=== PATIENT | male | born 1950 | race African-American/Black ===

== ENCOUNTER 2017-11-29 07:23 | Inpatient (IN) | payer OTHER ==
[~2017-11-29] VITALS: Ht 167.6 cm; Wt 63.5 kg
[~2017-11-29 07:23] MED LIST: B1/B1TAB5 MT; DONE10TA11 PO; FOLI-43 PO; FOLI-68 PO; KEPP500 PO; METH2.5T PO; METO25TA6 PO; OCD MT; THIA100T72 PO
[2017-11-29] MEDS ORDERED: LORAZEPAM 2MG/ML CPJ IV ONE (07:30)
[2017-11-29] MEDS ORDERED: LEVETIRACETAM 1000MG/100ML 100 ML IV ONE (07:30)
[2017-11-29] MEDS: LEVETIRACETAM 1000MG/100ML 100 ML IV NR ×3 (08:23→09:25)
[2017-11-29 09:08] LABS: BASOPHILS % 0.6 % (0.0-2.0); EOSINOPHILS % 1.2 % (0.0-5.0); HEMATOCRIT. 40.5 % (42.0-52.0); HEMOGLOBIN. 13.6 g/dL (14.0-18.0); MEAN CORPUSCULAR HEMOGLOBIN 28.9 pg (28.0-32.0); MEAN CORPUSCULAR VOLUME 86.2 fL (80.0-94.0); MEAN PLATELET VOLUME 7.7 fl (7.4-10.4); MONOCYTES % 4.7 % (2.0-8.0); NEUTROPHILS % 81.5 % (40.0-76.0); PLATELET 209 x1000/uL (130-400); RED CELL DISTRIBUTION WIDTH 15.5 % (11.6-14.6)
[2017-11-29 09:17] LABS: CHLORIDE 107 mEq/L (98-107)
[2017-11-29 09:23] LABS: ETHANOL BLOOD < 10 mg/dL
[2017-11-29 09:29] LABS: PHENOBARBITAL < 2.1 ug/mL (15.0-40.0); VALPROIC ACID < 3.0 ug/mL (50-100)
[2017-11-29 09:48] LABS: CARBAMAZEPINE < 0.5 ug/mL (4-12)
[2017-11-29] MEDS ORDERED: OLANZAPINE 10 MG/VIAL IM ONE (10:45)
[2017-11-29 12:00] VITALS: BP 110/65
[2017-11-29] MEDS ORDERED: DEXT 5%/0.45% NACL 1000ML 1,000 ML IV SCH (12:51)
[2017-11-29] MEDS ORDERED: DOCUSATE SODIUM 100MG CAPSULE PO PRN (13:00)
[2017-11-29] MEDS ORDERED: ONDANSETRON HCL 4MG/2ML INJ IV PRN (13:00)
[2017-11-29] MEDS ORDERED: HYDROCODONE/ACETAMINOPHEN 5/325MG TABLET PO PRN (13:00)
[2017-11-29] MEDS ORDERED: ONDANSETRON 4MG ODT PO PRN (13:15)
[2017-11-29 13:49] VITALS: BP 110/65
[2017-11-29] MEDS: DEXT 5%/0.45% NACL 1000ML 1,000 ML IV SCH (14:40)
[2017-11-29 15:57] VITALS: BP 143/79
[2017-11-29 17:56] LABS: CLARITY URINE CLEAR (CLEAR); COLOR URINE YELLOW (YELLOW); KETONES URINE TRACE (NEGATIVE); LEUKOCYTE ESTERASE URINE NEGATIVE (NEGATIVE); NITRITE URINE NEGATIVE (NEGATIVE); OCCULT BLOOD URINE NEGATIVE (NEGATIVE); PROTEIN URINE NEGATIVE (NEGATIVE); SPECIFIC GRAVITY URINE 1.012 (1.005-1.030)
[2017-11-29 18:05] LABS: *AMPHETAMINES SCREEN URINE NEGATIVE (NEGATIVE); *BARBITURATES SCREEN URINE NEGATIVE (NEGATIVE); *BENZODIAZEPINES SCREEN URINE PRESUMTIVE POSITIVE (NEGATIVE)
[2017-11-29 18:06] LABS: *COCAINE SCREEN URINE NEGATIVE (NEGATIVE); CANNABINOID URINE SCREEN NEGATIVE (NEGATIVE); METHADONE URINE SCREEN NEGATIVE (NEGATIVE); OPIATES URINE SCREEN NEGATIVE (NEGATIVE); PHENCYCLIDINE URINE SCREEN NEGATIVE (NEGATIVE)
[2017-11-29 20:00] VITALS: BP 129/87
[2017-11-29] MEDS: LEVETIRACETAM 500MG TABLET PO SCH (21:46)
[2017-11-29] MEDS: LORAZEPAM 2MG/ML CPJ IV PRN (21:47)
[2017-11-30] VITALS: BP 115/61
[2017-11-30 04:00] VITALS: BP 98/53
[2017-11-30] MEDS: LORAZEPAM 2MG/ML CPJ IV PRN ×4 (04:44→21:12)
[2017-11-30] MEDS: DEXT 5%/0.45% NACL 1000ML 1,000 ML IV SCH ×2 (06:23→16:04)
[2017-11-30 08:00] VITALS: BP 105/67
[2017-11-30 08:04] LABS: BASOPHILS % 0.3 % (0.0-2.0); EOSINOPHILS % 4.8 % (0.0-5.0); HEMATOCRIT. 40.8 % (42.0-52.0); HEMOGLOBIN. 13.8 g/dL (14.0-18.0); LYMPHOCYTES % 22.4 % (20.0-50.0); MEAN CORPUSCULAR VOLUME 85.8 fL (80.0-94.0); MEAN PLATELET VOLUME 7.7 fl (7.4-10.4); NEUTROPHILS % 62.5 % (40.0-76.0); PLATELET 207 x1000/uL (130-400); RED BLOOD CELL COUNT 4.76 mill/uL (4.7-6.1); RED CELL DISTRIBUTION WIDTH 15.8 % (11.6-14.6)
[2017-11-30] MEDS: FOLIC ACID 1MG TABLET PO SCH ×2 (09:00→10:09)
[2017-11-30] MEDS: LEVETIRACETAM 500MG TABLET PO SCH ×3 (09:00→21:11)
[2017-11-30 09:09] LABS: CHLORIDE 106 mEq/L (98-107)
[2017-11-30 12:00] VITALS: BP 124/84
[2017-11-30 20:00] VITALS: BP 123/78
[2017-12-01] VITALS: BP 137/84
[2017-12-01] MEDS: LORAZEPAM 2MG/ML CPJ IV PRN ×2 (02:01→13:22)
[2017-12-01 04:00] VITALS: BP 121/73
[2017-12-01] MEDS: DEXT 5%/0.45% NACL 1000ML 1,000 ML IV SCH ×2 (05:27→19:54)
[2017-12-01 08:00] VITALS: BP 109/69
[2017-12-01] MEDS: LEVETIRACETAM 500MG TABLET PO SCH ×2 (11:28→21:37)
[2017-12-01] MEDS: FOLIC ACID 1MG TABLET PO SCH (11:28)
[2017-12-01 12:00] VITALS: BP 130/81
[2017-12-01 16:00] VITALS: BP 125/76
[2017-12-01] MEDS: HALOPERIDOL LACTATE 5MG/ML VIAL IM PRN (16:48)
[2017-12-01 20:00] VITALS: BP 158/93
[2017-12-02] VITALS: BP 131/74
[2017-12-02 04:00] VITALS: BP 130/66
[2017-12-02 08:00] VITALS: BP 116/76
[2017-12-02] MEDS: LEVETIRACETAM 500MG TABLET PO SCH ×2 (08:54→21:20)
[2017-12-02] MEDS: DEXT 5%/0.45% NACL 1000ML 1,000 ML IV SCH ×2 (08:54→21:20)
[2017-12-02] MEDS: FOLIC ACID 1MG TABLET PO SCH (08:54)
[2017-12-02] MEDS: LORAZEPAM 2MG/ML CPJ IV PRN ×3 (08:54→18:24)
[2017-12-02 12:00] VITALS: BP 135/75
[2017-12-02 16:00] VITALS: BP 140/81
[2017-12-02 20:00] VITALS: BP 150/99
[2017-12-03] VITALS: BP 167/95
[2017-12-03] MEDS: LORAZEPAM 2MG/ML CPJ IV PRN ×2 (00:45→22:21)
[2017-12-03] MEDS: CLONIDINE 0.1MG TABLET PO PRN (01:13)
[2017-12-03 04:00] VITALS: BP 151/76
[2017-12-03 08:00] VITALS: BP 115/72
[2017-12-03] MEDS: FOLIC ACID 1MG TABLET PO SCH (11:31)
[2017-12-03] MEDS: LEVETIRACETAM 500MG TABLET PO SCH ×2 (11:31→21:54)
[2017-12-03] MEDS: DEXT 5%/0.45% NACL 1000ML 1,000 ML IV SCH (11:32)
[2017-12-03 12:00] VITALS: BP 98/59
[2017-12-03 16:00] VITALS: BP 118/70
[2017-12-03 20:00] VITALS: BP 108/72
[2017-12-04] VITALS: BP 145/87
[2017-12-04] MEDS: DEXT 5%/0.45% NACL 1000ML 1,000 ML IV SCH ×2 (02:21→19:36)
[2017-12-04] MEDS: HALOPERIDOL LACTATE 5MG/ML VIAL IM PRN ×2 (03:35→19:36)
[2017-12-04 04:00] VITALS: BP 143/89
[2017-12-04 08:32] VITALS: BP 140/79
[2017-12-04] MEDS: FOLIC ACID 1MG TABLET PO SCH (09:21)
[2017-12-04] MEDS: LEVETIRACETAM 500MG TABLET PO SCH ×2 (09:21→21:33)
[2017-12-04 11:58] VITALS: BP 143/88
[2017-12-04 16:00] VITALS: BP 107/72
[2017-12-04 20:00] VITALS: BP 104/69
[2017-12-05] VITALS: BP 116/73
[2017-12-05 04:00] VITALS: BP 99/54
[2017-12-05] MEDS: DEXT 5%/0.45% NACL 1000ML 1,000 ML IV SCH ×2 (05:32→20:07)
[2017-12-05 08:00] VITALS: BP 125/69
[2017-12-05] MEDS: LEVETIRACETAM 500MG TABLET PO SCH ×2 (08:45→20:07)
[2017-12-05] MEDS: FOLIC ACID 1MG TABLET PO SCH (08:45)
[2017-12-05] MEDS: HALOPERIDOL LACTATE 5MG/ML VIAL IM PRN ×2 (09:22→20:04)
[2017-12-05 12:00] VITALS: BP 110/71
[2017-12-05] MEDS: LORAZEPAM 2MG/ML CPJ IV PRN (13:43)
[2017-12-05 16:00] VITALS: BP 120/90
[2017-12-05 20:00] VITALS: BP 125/75
[2017-12-06] VITALS: BP 122/78
[2017-12-06 04:00] VITALS: BP 116/76
[2017-12-06] MEDS: HALOPERIDOL LACTATE 5MG/ML VIAL IM PRN (04:35)
[2017-12-06] MEDS: DEXT 5%/0.45% NACL 1000ML 1,000 ML IV SCH ×2 (05:59→19:37)
[2017-12-06 08:00] VITALS: BP 117/72
[2017-12-06] MEDS: FOLIC ACID 1MG TABLET PO SCH (08:40)
[2017-12-06] MEDS: LEVETIRACETAM 500MG TABLET PO SCH ×2 (08:40→20:25)
[2017-12-06] MEDS: LORAZEPAM 2MG/ML CPJ IV PRN (08:44)
[2017-12-06 12:00] VITALS: BP 119/67
[2017-12-06] MEDS: LAMOTRIGINE 25MG TABLET PO SCH (14:41)
[2017-12-06 16:00] VITALS: BP 126/87
[2017-12-06 16:27] LABS: BASOPHILS % 0.3 % (0.0-2.0); EOSINOPHILS % 2.9 % (0.0-5.0); HEMATOCRIT. 41.5 % (42.0-52.0); HEMOGLOBIN. 14.1 g/dL (14.0-18.0); LYMPHOCYTES % 19.2 % (20.0-50.0); MEAN CORPUSCULAR HEMOGLOBIN 29.1 pg (28.0-32.0); MEAN CORPUSCULAR VOLUME 85.6 fL (80.0-94.0); MEAN PLATELET VOLUME 7.9 fl (7.4-10.4); MONOCYTES % 7.6 % (2.0-8.0); PLATELET 209 x1000/uL (130-400); RED BLOOD CELL COUNT 4.85 mill/uL (4.7-6.1); RED CELL DISTRIBUTION WIDTH 15.4 % (11.6-14.6)
[2017-12-06 16:49] LABS: CHLORIDE 103 mEq/L (98-107)
[2017-12-06 16:53] LABS: AMMONIA 29 uMol/L (<32)
[2017-12-06 17:21] LABS: VITAMIN B12 SERUM 1850 pg/mL (211-911)
[2017-12-06 20:00] VITALS: BP 127/79
[2017-12-06] MEDS: RISPERIDONE 0.5MG TABLET PO SCH (20:25)
[2017-12-07] VITALS: BP 162/89
[2017-12-07 04:00] VITALS: BP 118/80
[2017-12-07 08:00] VITALS: BP 146/81
[2017-12-07] MEDS: DEXT 5%/0.45% NACL 1000ML 1,000 ML IV SCH ×2 (09:52→22:53)
[2017-12-07] MEDS: LEVETIRACETAM 500MG TABLET PO SCH ×2 (09:53→21:00)
[2017-12-07] MEDS: LAMOTRIGINE 25MG TABLET PO SCH (09:53)
[2017-12-07] MEDS: RISPERIDONE 0.5MG TABLET PO SCH ×2 (09:53→21:00)
[2017-12-07] MEDS: FOLIC ACID 1MG TABLET PO SCH (09:53)
[2017-12-07 12:00] VITALS: BP 124/82
[2017-12-07 16:00] VITALS: BP 152/69
[2017-12-07 20:00] VITALS: BP 133/98
[2017-12-08] VITALS (7 sets, daily range): BP systolic 115–156; BP diastolic 47–94
[2017-12-08] MEDS: FOLIC ACID 1MG TABLET PO SCH (09:48)
[2017-12-08] MEDS: LAMOTRIGINE 25MG TABLET PO SCH (09:48)
[2017-12-08] MEDS: RISPERIDONE 0.5MG TABLET PO SCH ×2 (09:48→21:04)
[2017-12-08] MEDS: LEVETIRACETAM 500MG TABLET PO SCH ×2 (09:48→21:04)
[2017-12-08] MEDS: DEXT 5%/0.45% NACL 1000ML 1,000 ML IV SCH (12:45)
[2017-12-09] VITALS (8 sets, daily range): BP systolic 108–155; BP diastolic 61–102
[2017-12-09] MEDS: DEXT 5%/0.45% NACL 1000ML 1,000 ML IV SCH ×2 (01:25→20:53)
[2017-12-09] MEDS: CLONIDINE 0.1MG TABLET PO PRN (03:50)
[2017-12-09] MEDS: LEVETIRACETAM 500MG TABLET PO SCH ×2 (10:20→20:51)
[2017-12-09] MEDS: LAMOTRIGINE 25MG TABLET PO SCH (10:20)
[2017-12-09] MEDS: RISPERIDONE 0.5MG TABLET PO SCH ×2 (10:20→20:51)
[2017-12-09] MEDS: FOLIC ACID 1MG TABLET PO SCH (10:20)
[2017-12-10] VITALS: BP 115/86
[2017-12-10 04:00] VITALS: BP 113/75
[2017-12-10 08:00] VITALS: BP 108/64
[2017-12-10] MEDS: FOLIC ACID 1MG TABLET PO SCH (08:28)
[2017-12-10] MEDS: LEVETIRACETAM 500MG TABLET PO SCH ×2 (08:28→20:23)
[2017-12-10] MEDS: RISPERIDONE 0.5MG TABLET PO SCH ×2 (08:28→20:23)
[2017-12-10] MEDS: LAMOTRIGINE 25MG TABLET PO SCH (08:28)
[2017-12-10] MEDS: DEXT 5%/0.45% NACL 1000ML 1,000 ML IV SCH (08:28)
[2017-12-10 12:00] VITALS: BP 110/66
[2017-12-10 16:00] VITALS: BP 96/57
[2017-12-10 20:00] VITALS: BP 104/69
[2017-12-10] MEDS: ACETAMINOPHEN 325MG TABLET PO PRN (20:23)
[2017-12-11] VITALS: BP 110/65
[2017-12-11] MEDS: HALOPERIDOL LACTATE 5MG/ML VIAL IM PRN ×2 (01:31→15:02)
[2017-12-11 04:00] VITALS: BP 118/69
[2017-12-11] MEDS: DEXT 5%/0.45% NACL 1000ML 1,000 ML IV SCH ×2 (05:05→13:33)
[2017-12-11 08:00] VITALS: BP 164/88
[2017-12-11] MEDS: FOLIC ACID 1MG TABLET PO SCH (08:02)
[2017-12-11] MEDS: LAMOTRIGINE 25MG TABLET PO SCH (08:02)
[2017-12-11] MEDS: LEVETIRACETAM 500MG TABLET PO SCH ×2 (08:02→21:02)
[2017-12-11] MEDS: RISPERIDONE 0.5MG TABLET PO SCH ×2 (08:03→21:02)
[2017-12-11] MEDS: ACETAMINOPHEN 325MG TABLET PO PRN (11:12)
[2017-12-11] MEDS: METOPROLOL TARTRATE 25MG TABLET PO SCH ×2 (11:14→21:01)
[2017-12-11 12:00] VITALS: BP 152/83
[2017-12-11] MEDS: LEVOFLOXACIN 500MG PREMIX 100 ML IV SCH (15:32)
[2017-12-11 20:00] VITALS: BP 132/75
[2017-12-12] VITALS (8 sets, daily range): BP systolic 101–166; BP diastolic 66–83
[2017-12-12] MEDS: METOPROLOL TARTRATE 25MG TABLET PO SCH (09:09)
[2017-12-12] MEDS: LEVETIRACETAM 500MG TABLET PO SCH ×2 (09:10→21:31)
[2017-12-12] MEDS: LAMOTRIGINE 25MG TABLET PO SCH (09:10)
[2017-12-12] MEDS: RISPERIDONE 0.5MG TABLET PO SCH ×2 (09:10→21:31)
[2017-12-12] MEDS: FOLIC ACID 1MG TABLET PO SCH (09:10)
[2017-12-12] MEDS: DEXT 5%/0.45% NACL 1000ML 1,000 ML IV SCH (11:44)
[2017-12-12] MEDS: LEVOFLOXACIN 500MG PREMIX 100 ML IV SCH (15:31)
== END 2017-12-12 21:38 | DRG 100 ==
LOC: ER 07:43 → 5WST 09:51 → ENRESERV 09:54 → EDBEDREQ 09:55 → EDBEDREQTM 09:55 → 5WST 12-11 10:00
PROVIDERS: ADMIT Hospitalist; ATTEND Hospitalist
PROC: 4A00X4Z Measurement of Central Nervous Electrical Activity, External Approach (ICD-10-PCS; principal; 2017-12-08)
DX: G40.409 Other generalized epilepsy and epileptic syndromes, not intractable, without status epilepticus (principal); J18.9 Pneumonia, unspecified organism; I10 Essential (primary) hypertension; Z86.73 Personal history of transient ischemic attack (TIA), and cerebral infarction without residual deficits; F91.9 Conduct disorder, unspecified; F07.81 Postconcussional syndrome; G93.89 Other specified disorders of brain; Z78.1 Physical restraint status; Z79.899 Other long term (current) drug therapy; Z88.0 Allergy status to penicillin; Z88.1 Allergy status to other antibiotic agents; Z82.49 Family history of ischemic heart disease and other diseases of the circulatory system
CPT/HCPCS: 36415; 70450; 70551; 71045; 80053; 80156; 80165; 80184; 80185; 80305; 81003; 82140; 82542; 82607; 82962; 84134; 85025; 93005; 96374; 96375; 97116; 97162; 97166; 97530; 99291; A6261; C1893; G0482; J1630; J1953; J1956; J2060; J3490

== ENCOUNTER 2018-05-13 20:28 | Emergency (ER) | payer OTHER ==
[~2018-05-13] VITALS: Ht 175.3 cm; Wt 73.0 kg
[2018-05-13] MEDS ORDERED: SODIUM CHLORIDE 0.9% 1,000 ML IV ONE ×2 (20:53→22:06)
[2018-05-13] MEDS ORDERED: LEVETIRACETAM 500MG PREMIX 100 ML IV ONE (21:00)
[2018-05-13 21:26] LABS: BASOPHILS % 0.4 % (0.0-2.0); EOSINOPHILS % 2.7 % (0.0-5.0); HEMATOCRIT. 40.4 % (42.0-52.0); HEMOGLOBIN. 13.5 g/dL (14.0-18.0); LYMPHOCYTES % 16.4 % (20.0-50.0); MEAN CORPUSCULAR HEMOGLOBIN 29.4 pg (28.0-32.0); MEAN CORPUSCULAR VOLUME 88.1 fL (80.0-94.0); MEAN PLATELET VOLUME 7.2 fl (7.4-10.4); MONOCYTES % 6.7 % (2.0-8.0); NEUTROPHILS % 73.8 % (40.0-76.0); PLATELET 228 x1000/uL (130-400); RED BLOOD CELL COUNT 4.59 mill/uL (4.7-6.1); RED CELL DISTRIBUTION WIDTH 14.3 % (11.6-14.6)
[2018-05-13 21:31] LABS: CHLORIDE 104 mEq/L (98-107)
[2018-05-13 21:32] LABS: INR 1.1; PROTHROMBIN TIME 11.3 sec (9.1-11.1)
[2018-05-13 21:35] LABS: ETHANOL BLOOD < 10 mg/dL
[2018-05-13 22:51] LABS: CLARITY URINE CLEAR (CLEAR); COLOR URINE YELLOW (YELLOW); KETONES URINE NEGATIVE (NEGATIVE); LEUKOCYTE ESTERASE URINE NEGATIVE (NEGATIVE); NITRITE URINE NEGATIVE (NEGATIVE); OCCULT BLOOD URINE NEGATIVE (NEGATIVE); PH URINE 6.5 (4.5-8.0); PROTEIN URINE 1+ (NEGATIVE); SPECIFIC GRAVITY URINE 1.022 (1.005-1.030)
[2018-05-13 23:19] LABS: *AMPHETAMINES SCREEN URINE NEGATIVE (NEGATIVE); *BARBITURATES SCREEN URINE NEGATIVE (NEGATIVE)
[2018-05-13 23:20] LABS: *BENZODIAZEPINES SCREEN URINE PRESUMTIVE POSITIVE (NEGATIVE); *COCAINE SCREEN URINE NEGATIVE (NEGATIVE); CANNABINOID URINE SCREEN NEGATIVE (NEGATIVE); METHADONE URINE SCREEN NEGATIVE (NEGATIVE); OPIATES URINE SCREEN NEGATIVE (NEGATIVE); PHENCYCLIDINE URINE SCREEN NEGATIVE (NEGATIVE)
[2018-05-14 01:11] VITALS: BP 148/87
== END 2018-05-14 01:32 | disposition home or self-care (01) ==
LOC: ER 20:28 → CANBEDREQ 05-14 19:27
DX: G40.909 Epilepsy, unspecified, not intractable, without status epilepticus (principal); N39.0 Urinary tract infection, site not specified; J84.9 Interstitial pulmonary disease, unspecified; F15.10 Other stimulant abuse, uncomplicated; I10 Essential (primary) hypertension; Z86.73 Personal history of transient ischemic attack (TIA), and cerebral infarction without residual deficits; Z88.1 Allergy status to other antibiotic agents; Z88.0 Allergy status to penicillin; Z79.899 Other long term (current) drug therapy
CPT/HCPCS: 36415; 70450; 71045; 80053; 80305; 80320; 81003; 82962; 83605; 84484; 85025; 85610; 87040; 87086; 93005; 96361; 96374; 99284; J1953; J7030; G0480

== ENCOUNTER 2018-12-30 13:54 | Inpatient (IN) | payer OTHER ==
[~2018-12-30] VITALS: Ht 157.5 cm; Wt 64.2 kg
[2018-12-30 14:46] LABS: BASOPHILS % 0.3 % (0.0-2.0); EOSINOPHILS % 1.7 % (0.0-5.0); HEMATOCRIT. 42.5 % (42.0-52.0); HEMOGLOBIN. 14.3 g/dL (14.0-18.0); LYMPHOCYTES % 21.5 % (20.0-50.0); MEAN CORPUSCULAR HEMOGLOBIN 29.2 pg (28.0-32.0); MEAN CORPUSCULAR VOLUME 86.7 fL (80.0-94.0); MONOCYTES % 5.5 % (2.0-8.0); PLATELET 202 x1000/uL (130-400); RED CELL DISTRIBUTION WIDTH 14.8 % (11.6-14.6)
[2018-12-30 14:52] LABS: CHLORIDE 107 mEq/L (98-107)
[2018-12-30 14:53] LABS: INR 1.1; PROTHROMBIN TIME 11.2 sec (9.6-11.0)
[2018-12-30 14:55] LABS: ETHANOL BLOOD < 10 mg/dL
[2018-12-30 14:58] LABS: LDL CHOLESTEROL 41 mg/dL (5-100)
[2018-12-30 15:36] LABS: CLARITY URINE CLEAR (CLEAR); COLOR URINE YELLOW (YELLOW); KETONES URINE NEGATIVE (NEGATIVE); LEUKOCYTE ESTERASE URINE NEGATIVE (NEGATIVE); NITRITE URINE NEGATIVE (NEGATIVE); OCCULT BLOOD URINE NEGATIVE (NEGATIVE); PH URINE 5.5 (4.5-8.0); PROTEIN URINE NEGATIVE (NEGATIVE); SPECIFIC GRAVITY URINE 1.003 (1.005-1.030)
[2018-12-30 15:52] LABS: *AMPHETAMINES SCREEN URINE NEGATIVE (NEGATIVE); *BARBITURATES SCREEN URINE NEGATIVE (NEGATIVE); *BENZODIAZEPINES SCREEN URINE NEGATIVE (NEGATIVE); *COCAINE SCREEN URINE NEGATIVE (NEGATIVE); METHADONE URINE SCREEN NEGATIVE (NEGATIVE)
[2018-12-30 15:53] LABS: CANNABINOID URINE SCREEN NEGATIVE (NEGATIVE); OPIATES URINE SCREEN NEGATIVE (NEGATIVE); PHENCYCLIDINE URINE SCREEN NEGATIVE (NEGATIVE)
[2018-12-30] MEDS ORDERED: ZOLPIDEM TARTRATE 5MG TABLET PO PRN (18:00)
[2018-12-30] MEDS ORDERED: ACETAMINOPHEN 325MG TABLET PO PRN (18:00)
[2018-12-30] MEDS ORDERED: DOCUSATE SODIUM 100MG CAPSULE PO PRN (18:00)
[2018-12-30] MEDS ORDERED: GUAIFENESIN 200MG/10ML SUGAR FREE UDC PO PRN (18:00)
[2018-12-30] MEDS ORDERED: IPRATROPIUM/ALBUTEROL 0.5-3(2.5)MG/3ML NEB NEB PRN (18:00)
[2018-12-30] MEDS ORDERED: NITROGLYCERIN 0.4MG TABLET SL SL PRN (18:00)
[2018-12-30] MEDS ORDERED: LORAZEPAM 2MG/ML CPJ IV PRN (18:00)
[2018-12-30] MEDS ORDERED: CLONIDINE 0.1MG TABLET PO PRN (18:00)
[2018-12-30] MEDS ORDERED: ONDANSETRON HCL 4MG/2ML INJ IV PRN (18:00)
[2018-12-30] MEDS ORDERED: ENOXAPARIN 40MG/0.4ML SYR SUBCUT SCH (18:00)
[2018-12-30] MEDS ORDERED: MAGNESIUM/ALUMINUM HYDROXIDE/SIMETHICONE 30ML UDC PO PRN (18:00)
[2018-12-30] MEDS ORDERED: ASPIRIN 325MG EC TABLET PO ONE (18:15)
[2018-12-30] MEDS ORDERED: LORAZEPAM 2MG/ML CPJ IV ONE (18:30)
[2018-12-30] MEDS ORDERED: TRAMADOL 50MG TABLET PO PRN (19:16)
[2018-12-30 20:00] VITALS: BP 152/92
[2018-12-30] MEDS: FAMOTIDINE 20MG TABLET PO SCH (21:19)
[2018-12-30] MEDS: LEVETIRACETAM 500MG TABLET PO SCH (21:19)
[2018-12-30] MEDS: ENOXAPARIN 40MG/0.4ML SYR SUBCUT SCH (21:19)
[2018-12-31] VITALS: BP 137/78
[2018-12-31 04:00] VITALS: BP 118/71
[2018-12-31 08:00] VITALS: BP 108/75
[2018-12-31] MEDS: ASPIRIN 325MG EC TABLET PO SCH (09:43)
[2018-12-31] MEDS: FAMOTIDINE 20MG TABLET PO SCH ×2 (09:43→20:57)
[2018-12-31] MEDS: LEVETIRACETAM 500MG TABLET PO SCH ×2 (09:43→20:57)
[2018-12-31] MEDS: DONEPEZIL HCL 10MG TABLET PO SCH (09:43)
[2018-12-31 12:00] VITALS: BP 102/59
[2018-12-31 16:00] VITALS: BP 109/64
[2018-12-31 20:00] VITALS: BP 122/82
[2018-12-31] MEDS: ENOXAPARIN 40MG/0.4ML SYR SUBCUT SCH (20:57)
[2019-01-01] VITALS: BP 126/94
[2019-01-01 02:00] VITALS: BP 124/90
[2019-01-01 04:00] VITALS: BP 121/78
[2019-01-01 06:00] VITALS: BP 128/65
[2019-01-01 08:00] VITALS: BP 120/84
[2019-01-01] MEDS: FAMOTIDINE 20MG TABLET PO SCH (09:00)
[2019-01-01] MEDS: LEVETIRACETAM 500MG TABLET PO SCH (09:35)
[2019-01-01] MEDS: ASPIRIN 325MG EC TABLET PO SCH (09:35)
[2019-01-01] MEDS: DONEPEZIL HCL 10MG TABLET PO SCH (09:35)
[2019-01-01 12:11] VITALS: BP 104/74
== END 2019-01-01 14:03 | disposition home health service (06) | DRG 93 ==
LOC: ER 13:54 → 5WST 16:03 → EDBEDREQ 16:12 → EDBEDREQSVC 16:12 → ENRESERV 17:08 → EDBEDREQ 17:54
PROVIDERS: ADMIT Internal Medicine; ATTEND Internal Medicine
DX: G92 Toxic encephalopathy (principal); F03.90 Unspecified dementia, unspecified severity, without behavioral disturbance, psychotic disturbance, mood disturbance, and anxiety; I10 Essential (primary) hypertension; G40.909 Epilepsy, unspecified, not intractable, without status epilepticus; F17.200 Nicotine dependence, unspecified, uncomplicated; Z82.49 Family history of ischemic heart disease and other diseases of the circulatory system; Z88.0 Allergy status to penicillin; Z79.899 Other long term (current) drug therapy; Z86.73 Personal history of transient ischemic attack (TIA), and cerebral infarction without residual deficits
CPT/HCPCS: 36415; 70551; 71045; 80061; 80305; 80320; 81003; 82962; 83721; 84484; 93005; 93306; 93880; 93970; 97162; 99291; J1650; J2060; G0480

== ENCOUNTER 2019-01-25 11:49 | Inpatient (IN) | payer OTHER ==
[~2019-01-25] VITALS: Ht 170.2 cm; Wt 67.6 kg
[2019-01-25] MEDS ORDERED: ROSU40TA MT (12:09)
[2019-01-25] MEDS ORDERED: RISP0.5T19 MT (12:11)
[2019-01-25] MEDS ORDERED: QUET25TA PO (12:11)
[2019-01-25] MEDS ORDERED: LORAZEPAM 2MG/ML CPJ ONE (12:13)
[2019-01-25] MEDS ORDERED: HYDRALAZINE 20MG/ML VIAL IV ONE (12:15)
[2019-01-25] MEDS ORDERED: CLONIDINE 0.2MG TABLET PO ONE (12:15)
[2019-01-25 12:46] LABS: BASOPHILS % 0.5 % (0.0-2.0); EOSINOPHILS % 0.5 % (0.0-5.0); HEMATOCRIT. 44.7 % (42.0-52.0); HEMOGLOBIN. 14.6 g/dL (14.0-18.0); LYMPHOCYTES % 12.3 % (20.0-50.0); MEAN CORPUSCULAR HEMOGLOBIN 28.6 pg (28.0-32.0); MEAN CORPUSCULAR VOLUME 87.7 fL (80.0-94.0); MEAN PLATELET VOLUME 8.1 fl (7.4-10.4); MONOCYTES % 5.3 % (2.0-8.0); NEUTROPHILS % 81.4 % (40.0-76.0); PLATELET 223 x1000/uL (130-400); RED BLOOD CELL COUNT 5.09 mill/uL (4.7-6.1); RED CELL DISTRIBUTION WIDTH 15.4 % (11.6-14.6)
[2019-01-25 12:51] LABS: CHLORIDE 104 mEq/L (98-107)
[2019-01-25 12:55] LABS: ETHANOL BLOOD < 10 mg/dL; INR 1.1
[2019-01-25 12:58] LABS: BETA HYDROXYBUTYRATE 0.2 mMol/L (0.0-0.3); LDL CHOLESTEROL 39 mg/dL (5-100)
[2019-01-25 13:29] LABS: CLARITY URINE CLEAR (CLEAR); COLOR URINE YELLOW (YELLOW); KETONES URINE NEGATIVE (NEGATIVE); LEUKOCYTE ESTERASE URINE NEGATIVE (NEGATIVE); NITRITE URINE NEGATIVE (NEGATIVE); OCCULT BLOOD URINE NEGATIVE (NEGATIVE); PH URINE 5.5 (4.5-8.0); PROTEIN URINE TRACE (NEGATIVE); SPECIFIC GRAVITY URINE 1.006 (1.005-1.030); UROBILINOGEN URINE 0.2 E.U./dL (0.2-1.0)
[2019-01-25 13:47] LABS: *AMPHETAMINES SCREEN URINE NEGATIVE (NEGATIVE); *BARBITURATES SCREEN URINE NEGATIVE (NEGATIVE)
[2019-01-25 13:48] LABS: *BENZODIAZEPINES SCREEN URINE NEGATIVE (NEGATIVE); *COCAINE SCREEN URINE NEGATIVE (NEGATIVE); CANNABINOID URINE SCREEN NEGATIVE (NEGATIVE); METHADONE URINE SCREEN NEGATIVE (NEGATIVE); OPIATES URINE SCREEN NEGATIVE (NEGATIVE); PHENCYCLIDINE URINE SCREEN NEGATIVE (NEGATIVE)
[2019-01-25] MEDS ORDERED: PHENYTOIN SODIUM 100MG/2ML VIAL IV ONE (15:45)
[2019-01-25] MEDS ORDERED: LORAZEPAM 2MG/ML CPJ IV ONE ×2 (16:00→16:15)
[2019-01-25] MEDS ORDERED: DIPHENHYDRAMINE 50MG/ML VIAL IV ONE (16:15)
[2019-01-25] MEDS ORDERED: ZIPRASIDONE MESYLATE 20MG/VIAL IM ONE (16:15)
[2019-01-25] MEDS ORDERED: CLONIDINE 0.1MG TABLET PO PRN (17:15)
[2019-01-25] MEDS ORDERED: GUAIFENESIN 200MG/10ML SUGAR FREE UDC PO PRN (17:15)
[2019-01-25] MEDS ORDERED: TRAMADOL 50MG TABLET PO PRN (17:15)
[2019-01-25] MEDS ORDERED: ZOLPIDEM TARTRATE 5MG TABLET PO PRN (17:15)
[2019-01-25] MEDS ORDERED: IPRATROPIUM/ALBUTEROL 0.5-3(2.5)MG/3ML NEB NEB PRN (17:15)
[2019-01-25] MEDS ORDERED: NITROGLYCERIN 0.4MG TABLET SL SL PRN (17:15)
[2019-01-25] MEDS ORDERED: ACETAMINOPHEN 325MG TABLET PO PRN (17:15)
[2019-01-25] MEDS ORDERED: ONDANSETRON HCL 4MG/2ML INJ IV PRN (17:15)
[2019-01-25] MEDS ORDERED: MAGNESIUM/ALUMINUM HYDROXIDE/SIMETHICONE 30ML UDC PO PRN (17:15)
[2019-01-25] MEDS ORDERED: DOCUSATE SODIUM 100MG CAPSULE PO PRN (17:15)
[2019-01-25 18:00] LABS: LDL CHOLESTEROL 43 mg/dL (5-100)
[2019-01-25 18:03] LABS: HDL CHOLESTEROL 79 mg/dL (40-59)
[2019-01-25] MEDS: ENOXAPARIN 40MG/0.4ML SYR SUBCUT SCH (18:17)
[2019-01-25] MEDS ORDERED: LEVOFLOXACIN 500MG PREMIX 100 ML IV SCH (18:30)
[2019-01-25 19:40] VITALS: BP 116/82
[2019-01-25 20:00] VITALS: BP 146/84
[2019-01-25] MEDS ORDERED: LEVETIRACETAM 500MG TABLET PO SCH (21:00)
[2019-01-25] MEDS ORDERED: LEVETIRACETAM 500MG PREMIX 100 ML IV SCH (21:00)
[2019-01-25 22:00] VITALS: BP 127/86
[2019-01-26] VITALS (12 sets, daily range): BP systolic 95–126; BP diastolic 47–89
[2019-01-26] MEDS: CEFTRIAXONE 1 G PREMIX 50 ML IV SCH ×2 (00:23→22:55)
[2019-01-26] MEDS: LEVETIRACETAM 500MG in SODIUM CHLORIDE 0.9% 100ML IV SCH ×3 (00:23→21:29)
[2019-01-26] MEDS: ASCORBIC ACID 500 MG TABLET PO SCH ×3 (00:27→21:29)
[2019-01-26] MEDS: FAMOTIDINE 20MG TABLET PO SCH ×3 (00:27→21:29)
[2019-01-26] MEDS: ATORVASTATIN CALCIUM 10MG TABLET PO SCH ×2 (00:30→21:29)
[2019-01-26 00:35] LABS: CREATINE KINASE 315 IU/L (39-308)
[2019-01-26 00:36] LABS: CREATINE KINASE MB FRACTION 2.6 ng/mL (0.5-3.6)
[2019-01-26 07:52] LABS: CREATINE KINASE 315 IU/L (39-308)
[2019-01-26 07:53] LABS: CREATINE KINASE MB FRACTION 2.4 ng/mL (0.5-3.6)
[2019-01-26] MEDS: CLOPIDOGREL 75MG TABLET PO SCH (08:47)
[2019-01-26] MEDS: ZINC SULFATE 220 MG ( 50 ) CAPSULE PO SCH (08:47)
[2019-01-26] MEDS: LORAZEPAM 2MG/ML CPJ IV PRN ×2 (10:18→14:19)
[2019-01-26] MEDS: ENOXAPARIN 40MG/0.4ML SYR SUBCUT SCH (18:52)
[2019-01-26] MEDS ORDERED: LEVOFLOXACIN 500MG PREMIX 100 ML IV SCH (20:00)
[2019-01-26] MEDS: NICOTINE 14MG PATCH TD SCH (21:29)
[2019-01-27] VITALS (9 sets, daily range): BP systolic 70–108; BP diastolic 41–74
[2019-01-27] MEDS: LORAZEPAM 2MG/ML CPJ IV PRN ×2 (04:02→08:02)
[2019-01-27] MEDS: FAMOTIDINE 20MG TABLET PO SCH (08:01)
[2019-01-27] MEDS: LEVETIRACETAM 500MG in SODIUM CHLORIDE 0.9% 100ML IV SCH (08:01)
[2019-01-27] MEDS: CLOPIDOGREL 75MG TABLET PO SCH (08:01)
[2019-01-27] MEDS: ASCORBIC ACID 500 MG TABLET PO SCH (08:01)
[2019-01-27] MEDS: ZINC SULFATE 220 MG ( 50 ) CAPSULE PO SCH (08:01)
[2019-01-27] MEDS: NICOTINE 14MG PATCH TD SCH (08:02)
[2019-01-27] MEDS ORDERED: LEVE1000 MT (10:57)
== END 2019-01-27 15:07 | disposition home or self-care (01) | DRG 100 ==
LOC: ER 11:49 → 5EST 15:42 → EDBEDREQ 15:46 → SUPCPDRO 17:09 → ENRESERV 18:07 → CANBEDREQ 01-26 15:36
PROVIDERS: ADMIT Internal Medicine; ATTEND Internal Medicine
DX: G40.301 Generalized idiopathic epilepsy and epileptic syndromes, not intractable, with status epilepticus (principal); G92 Toxic encephalopathy; E78.00 Pure hypercholesterolemia, unspecified; F03.90 Unspecified dementia, unspecified severity, without behavioral disturbance, psychotic disturbance, mood disturbance, and anxiety; I10 Essential (primary) hypertension; Z82.49 Family history of ischemic heart disease and other diseases of the circulatory system; Z86.73 Personal history of transient ischemic attack (TIA), and cerebral infarction without residual deficits; Z91.19 Patient's noncompliance with other medical treatment and regimen
CPT/HCPCS: 36415; 71045; 80053; 80061; 80185; 80305; 80320; 81003; 82010; 82140; 82550; 82553; 82962; 83036; 83605; 83721; 84145; 84484; 85025; 93005; 93970; 99285; J0360; J0696; J1165; J1200; J1650; J1953; J1956; J2060; J3486; J7050; G0480

== ENCOUNTER 2019-07-02 11:08 | Inpatient (IN) | payer OTHER ==
[~2019-07-02] VITALS: Ht 175.3 cm; Wt 74.6 kg
[~2019-07-02 11:08] MED LIST changes: +LEVE1000 MT; +QUET25TA PO; +RISP0.5T19 MT; +ROSU40TA MT
[2019-07-02] MEDS ORDERED: LORAZEPAM 2MG/ML CPJ IV ONE ×3 (11:45→14:45)
[2019-07-02] MEDS ORDERED: LEVETIRACETAM 1000MG/100ML 100 ML IV ONE (11:45)
[2019-07-02] MEDS ORDERED: DILTIAZEM HCL 5MG/ML 5ML VIAL IV ONE (12:45)
[2019-07-02 13:13] LABS: BASOPHILS % 0.7 % (0.0-2.0); EOSINOPHILS % 0.2 % (0.0-5.0); HEMATOCRIT. 41.5 % (42.0-52.0); HEMOGLOBIN. 13.7 g/dL (14.0-18.0); LYMPHOCYTES % 8.3 % (20.0-50.0); MEAN CORPUSCULAR VOLUME 90.7 fL (80.0-94.0); MEAN PLATELET VOLUME 7.5 fl (7.4-10.4); MONOCYTES % 4.2 % (2.0-8.0); NEUTROPHILS % 86.6 % (40.0-76.0); PLATELET 178 x1000/uL (130-400); RED BLOOD CELL COUNT 4.58 mill/uL (4.7-6.1); RED CELL DISTRIBUTION WIDTH 15.1 % (11.6-14.6)
[2019-07-02 13:20] LABS: CHLORIDE 104 mEq/L (98-107)
[2019-07-02 13:22] LABS: CLARITY URINE CLEAR (CLEAR); COLOR URINE YELLOW (YELLOW); KETONES URINE NEGATIVE (NEGATIVE); LEUKOCYTE ESTERASE URINE TRACE (NEGATIVE); NITRITE URINE NEGATIVE (NEGATIVE); OCCULT BLOOD URINE TRACE (NEGATIVE); PROTEIN URINE 2+ (NEGATIVE); SPECIFIC GRAVITY URINE 1.021 (1.005-1.030)
[2019-07-02 13:24] LABS: ETHANOL BLOOD < 10 mg/dL
[2019-07-02 13:35] LABS: METHADONE URINE SCREEN NEGATIVE (NEGATIVE); OPIATES URINE SCREEN NEGATIVE (NEGATIVE)
[2019-07-02 13:36] LABS: *AMPHETAMINES SCREEN URINE NEGATIVE (NEGATIVE); CANNABINOID URINE SCREEN NEGATIVE (NEGATIVE); PHENCYCLIDINE URINE SCREEN NEGATIVE (NEGATIVE)
[2019-07-02 13:42] LABS: *BENZODIAZEPINES SCREEN URINE NEGATIVE (NEGATIVE)
[2019-07-02 13:44] LABS: *BARBITURATES SCREEN URINE NEGATIVE (NEGATIVE)
[2019-07-02 13:45] LABS: *COCAINE SCREEN URINE NEGATIVE (NEGATIVE)
[2019-07-02] MEDS ORDERED: SODIUM BICARBONATE 8.4% 1 MEQ/ML 50ML SYR IV ONE (14:30)
[2019-07-02] MEDS ORDERED: SODIUM CHLORIDE 0.9% 1,000 ML IV ONE (14:35)
[2019-07-03] MEDS ORDERED: HYDROCODONE/ACETAMINOPHEN 10/325MG TABLET PO PRN (10:00)
[2019-07-03] MEDS ORDERED: ONDANSETRON HCL 4MG/2ML INJ IV PRN (10:00)
[2019-07-03] MEDS ORDERED: IPRATROPIUM/ALBUTEROL 0.5-3(2.5)MG/3ML NEB HHN PRN (10:00)
[2019-07-03] MEDS ORDERED: MAGNESIUM/ALUMINUM HYDROXIDE/SIMETHICONE 30ML UDC PO PRN (10:00)
[2019-07-03] MEDS ORDERED: DIPHENHYDRAMINE 50MG/ML VIAL IV PRN (10:00)
[2019-07-03] MEDS ORDERED: CLONIDINE 0.1MG TABLET PO PRN (10:00)
[2019-07-03] MEDS ORDERED: HYDRALAZINE 20MG/ML VIAL IV PRN (10:00)
[2019-07-03] MEDS ORDERED: GUAIFENESIN 200MG/10ML SUGAR FREE UDC PO PRN (10:00)
[2019-07-03] MEDS ORDERED: ACETAMINOPHEN 325MG TABLET PO PRN (10:00)
[2019-07-03] MEDS ORDERED: MORPHINE SULFATE 2 MG/ML CPJ (NOT FOR IM USE) IV PRN (10:00)
[2019-07-03] MEDS: ENOXAPARIN 40MG/0.4ML SYR SUBCUT SCH (11:22)
[2019-07-03] MEDS: LORAZEPAM 2MG/ML CPJ IV PRN (12:41)
[2019-07-03 20:00] VITALS: BP 146/76
[2019-07-03] MEDS ORDERED: AZITHROMYCIN 500 MG in DEXT 5% WATER 250 ML IV NR (21:00)
[2019-07-03] MEDS: LEVETIRACETAM 500MG TABLET PO SCH (22:52)
[2019-07-03] MEDS: SODIUM CHLORIDE 0.9% INJ 3ML FLUSH IVF SCH (22:52)
[2019-07-03] MEDS: DEXT 5%/0.45% NACL 1000ML 1,000 ML IV SCH (22:52)
[2019-07-03 23:53] VITALS: BP 146/76
[2019-07-04] VITALS: BP 123/77
[2019-07-04 04:00] VITALS: BP 157/86
[2019-07-04] MEDS: SODIUM CHLORIDE 0.9% INJ 3ML FLUSH IVF SCH ×3 (06:00→22:00)
[2019-07-04 07:18] LABS: BASOPHILS % 0.5 % (0.0-2.0); EOSINOPHILS % 0.8 % (0.0-5.0); HEMATOCRIT. 39.6 % (42.0-52.0); HEMOGLOBIN. 13.5 g/dL (14.0-18.0); LYMPHOCYTES % 9.5 % (20.0-50.0); MEAN CORPUSCULAR HEMOGLOBIN 30.6 pg (28.0-32.0); MEAN CORPUSCULAR VOLUME 89.5 fL (80.0-94.0); MEAN PLATELET VOLUME 7.6 fl (7.4-10.4); NEUTROPHILS % 77.2 % (40.0-76.0); PLATELET 154 x1000/uL (130-400); RED BLOOD CELL COUNT 4.43 mill/uL (4.7-6.1); RED CELL DISTRIBUTION WIDTH 15.2 % (11.6-14.6)
[2019-07-04 07:21] LABS: CHLORIDE 103 mEq/L (98-107)
[2019-07-04 08:00] VITALS: BP 131/8
[2019-07-04] MEDS: LEVETIRACETAM 500MG TABLET PO SCH ×2 (08:43→20:51)
[2019-07-04] MEDS: ENOXAPARIN 40MG/0.4ML SYR SUBCUT SCH (08:44)
[2019-07-04 12:00] VITALS: BP 114/79
[2019-07-04] MEDS: DOCUSATE SODIUM 100MG CAPSULE PO PRN (13:39)
[2019-07-04 16:00] VITALS: BP 113/75
[2019-07-04] MEDS: LORAZEPAM 2MG/ML CPJ IV PRN (20:50)
[2019-07-04 20:52] LABS: VITAMIN B12 SERUM > 2000.0 pg/mL (211-911)
[2019-07-04] MEDS ORDERED: AZITHROMYCIN 250 MG in DEXT 5% WATER 250 ML IV SCH (21:00)
[2019-07-04] MEDS ORDERED: LORAZEPAM 2MG/ML CPJ IV PRN (22:15)
[2019-07-05] VITALS: BP 116/76
[2019-07-05 04:00] VITALS: BP 114/69
[2019-07-05 08:00] VITALS: BP 113/75
[2019-07-05] MEDS: ENOXAPARIN 40MG/0.4ML SYR SUBCUT SCH (09:04)
[2019-07-05] MEDS: LEVETIRACETAM 500MG TABLET PO SCH ×2 (09:04→20:40)
[2019-07-05 12:00] VITALS: BP 110/78
[2019-07-05] MEDS: SODIUM CHLORIDE 0.9% INJ 3ML FLUSH IVF SCH ×2 (14:00→20:43)
[2019-07-05] MEDS: DEXT 5%/0.45% NACL 1000ML 1,000 ML IV SCH (15:52)
[2019-07-05 16:00] VITALS: BP 102/69
[2019-07-05 20:00] VITALS: BP 125/68
[2019-07-05] MEDS: AZITHROMYCIN 250 MG TABLET PO SCH (20:40)
[2019-07-06] VITALS: BP 129/61
[2019-07-06 04:00] VITALS: BP 111/60
[2019-07-06] MEDS: SODIUM CHLORIDE 0.9% INJ 3ML FLUSH IVF SCH ×2 (05:17→14:00)
[2019-07-06 08:00] VITALS: BP 107/64
[2019-07-06] MEDS: ENOXAPARIN 40MG/0.4ML SYR SUBCUT SCH (08:35)
[2019-07-06] MEDS: LEVETIRACETAM 500MG TABLET PO SCH ×2 (08:35→23:14)
[2019-07-06] MEDS: AZITHROMYCIN 250 MG TABLET PO SCH (08:35)
[2019-07-06 12:00] VITALS: BP 110/68
[2019-07-06] MEDS ORDERED: LORAZEPAM 2MG/ML CPJ IM PRN (15:00)
[2019-07-06 16:00] VITALS: BP 107/73
[2019-07-06 20:00] VITALS: BP 116/76
[2019-07-07] VITALS: BP 114/78
[2019-07-07 04:00] VITALS: BP 98/70
[2019-07-07] MEDS: LORAZEPAM 2MG/ML CPJ IV PRN (04:32)
[2019-07-07 08:30] VITALS: BP 100/71
[2019-07-07] MEDS: ENOXAPARIN 40MG/0.4ML SYR SUBCUT SCH (10:17)
[2019-07-07] MEDS: DOCUSATE SODIUM 100MG CAPSULE PO PRN (10:17)
[2019-07-07] MEDS: AZITHROMYCIN 250 MG TABLET PO SCH (10:17)
[2019-07-07] MEDS: LEVETIRACETAM 500MG TABLET PO SCH ×2 (10:17→23:15)
[2019-07-07 12:04] VITALS: BP 117/75
[2019-07-07] MEDS: SODIUM CHLORIDE 0.9% INJ 3ML FLUSH IVF SCH ×2 (14:00→23:15)
[2019-07-07 16:37] VITALS: BP 99/55
[2019-07-07 20:00] VITALS: BP 95/52
[2019-07-08] VITALS: BP 112/52
[2019-07-08] MEDS: SODIUM CHLORIDE 0.9% INJ 3ML FLUSH IVF SCH ×2 (06:00→14:00)
[2019-07-08 06:11] VITALS: BP 99/56
[2019-07-08 08:00] VITALS: BP 107/69
[2019-07-08] MEDS: AZITHROMYCIN 250 MG TABLET PO SCH (09:18)
[2019-07-08] MEDS: LEVETIRACETAM 500MG TABLET PO SCH (09:18)
[2019-07-08] MEDS: ENOXAPARIN 40MG/0.4ML SYR SUBCUT SCH (09:19)
[2019-07-08] MEDS ORDERED: METOPROLOL TARTRATE 25MG TABLET PO SCH (11:15)
[2019-07-08] MEDS ORDERED: THIAMINE HCL 100MG TABLET PO SCH (11:15)
[2019-07-08] MEDS ORDERED: QUETIAPINE FUMARATE 25MG TABLET PO SCH (11:15)
[2019-07-08] MEDS ORDERED: CALCIUM CARBONATE/VITAMIN D3 500MG TABLET PO SCH (11:15)
[2019-07-08] MEDS ORDERED: FOLIC ACID 1MG TABLET PO SCH (11:15)
[2019-07-08 12:00] VITALS: BP 104/64
[2019-07-08 16:00] VITALS: BP 101/62
[2019-07-08 16:45] VITALS: BP 101/62
[2019-07-08] MEDS ORDERED: RISPERIDONE 0.5MG TABLET PO SCH (21:00)
[2019-07-08] MEDS ORDERED: DONEPEZIL HCL 10MG TABLET PO SCH (21:00)
== END 2019-07-08 17:17 | disposition home or self-care (01) | DRG 100 ==
LOC: ER 11:08 → EDBEDREQ 13:42 → 7WST 07-03 13:41 → ENRESERV 07-03 17:03 → 5WST 07-04 10:40
PROVIDERS: ADMIT Internal Medicine; ATTEND Internal Medicine
PROC: 4A00X4Z Measurement of Central Nervous Electrical Activity, External Approach (ICD-10-PCS; principal; 2019-07-05)
DX: G40.909 Epilepsy, unspecified, not intractable, without status epilepticus (principal); J18.9 Pneumonia, unspecified organism; I69.951 Hemiplegia and hemiparesis following unspecified cerebrovascular disease affecting right dominant side; N39.0 Urinary tract infection, site not specified; D64.9 Anemia, unspecified; I10 Essential (primary) hypertension; F03.90 Unspecified dementia, unspecified severity, without behavioral disturbance, psychotic disturbance, mood disturbance, and anxiety; D72.810 Lymphocytopenia; R05 Cough; Z20.828 Contact with and (suspected) exposure to other viral communicable diseases; F17.210 Nicotine dependence, cigarettes, uncomplicated; Z78.1 Physical restraint status; Z79.899 Other long term (current) drug therapy; Z88.0 Allergy status to penicillin; Z82.49 Family history of ischemic heart disease and other diseases of the circulatory system; Z91.14 Patient's other noncompliance with medication regimen; Z88.8 Allergy status to other drugs, medicaments and biological substances
CPT/HCPCS: 36415; 71045; 80053; 80305; 80320; 81003; 82607; 83880; 84443; 84484; 85025; 87635; 93005; 97116; 97162; 99285; J0360; J0456; J1200; J1650; J1953; J2060; J3490; J7030; J7060; G0480

== ENCOUNTER 2019-09-02 20:32 | Inpatient (IN) | payer OTHER ==
[~2019-09-02] VITALS: Ht 172.7 cm; Wt 68.0 kg
[2019-09-03] MEDS ORDERED: SODIUM CHLORIDE 0.9% 1,000 ML IV ONE (00:04)
[2019-09-03 00:38] LABS: CLARITY URINE CLEAR (CLEAR); COLOR URINE YELLOW (YELLOW); KETONES URINE NEGATIVE (NEGATIVE); LEUKOCYTE ESTERASE URINE NEGATIVE (NEGATIVE); NITRITE URINE NEGATIVE (NEGATIVE); OCCULT BLOOD URINE NEGATIVE (NEGATIVE); PH URINE 5.5 (4.5-8.0); PROTEIN URINE 1+ (NEGATIVE); SPECIFIC GRAVITY URINE 1.017 (1.005-1.030)
[2019-09-03 00:55] LABS: BASOPHILS % 0.5 % (0.0-2.0); EOSINOPHILS % 1.8 % (0.0-5.0); HEMATOCRIT. 46.4 % (42.0-52.0); HEMOGLOBIN. 15.7 g/dL (14.0-18.0); LYMPHOCYTES % 28.1 % (20.0-50.0); MEAN CORPUSCULAR HEMOGLOBIN 30.6 pg (28.0-32.0); MEAN CORPUSCULAR VOLUME 90.3 fL (80.0-94.0); MEAN PLATELET VOLUME 8.2 fl (7.4-10.4); MONOCYTES % 6.1 % (2.0-8.0); NEUTROPHILS % 63.5 % (40.0-76.0); PLATELET 163 x1000/uL (130-400); RED BLOOD CELL COUNT 5.14 mill/uL (4.7-6.1); RED CELL DISTRIBUTION WIDTH 14.4 % (11.6-14.6)
[2019-09-03 00:57] LABS: CHLORIDE 105 mEq/L (98-107)
[2019-09-03 03:14] LABS: *AMPHETAMINES SCREEN URINE NEGATIVE (NEGATIVE); *BARBITURATES SCREEN URINE NEGATIVE (NEGATIVE); *BENZODIAZEPINES SCREEN URINE NEGATIVE (NEGATIVE)
[2019-09-03 03:15] LABS: *COCAINE SCREEN URINE NEGATIVE (NEGATIVE); CANNABINOID URINE SCREEN NEGATIVE (NEGATIVE); METHADONE URINE SCREEN NEGATIVE (NEGATIVE); OPIATES URINE SCREEN NEGATIVE (NEGATIVE); PHENCYCLIDINE URINE SCREEN NEGATIVE (NEGATIVE)
[2019-09-03] MEDS ORDERED: OLANZAPINE 10 MG/VIAL IM ONE (05:15)
[2019-09-03] MEDS ORDERED: GUAIFENESIN 200MG/10ML SUGAR FREE UDC PO PRN (09:15)
[2019-09-03] MEDS ORDERED: DIPHENHYDRAMINE 50MG/ML VIAL IV PRN (09:15)
[2019-09-03] MEDS ORDERED: DOCUSATE SODIUM 100MG CAPSULE PO PRN (09:15)
[2019-09-03] MEDS ORDERED: ONDANSETRON HCL 4MG/2ML INJ IV PRN (09:15)
[2019-09-03] MEDS ORDERED: MORPHINE SULFATE 2 MG/ML CPJ (NOT FOR IM USE) IV PRN (09:15)
[2019-09-03] MEDS ORDERED: ACETAMINOPHEN 325MG TABLET PO PRN (09:15)
[2019-09-03] MEDS ORDERED: IPRATROPIUM/ALBUTEROL 0.5-3(2.5)MG/3ML NEB NEB PRN (09:15)
[2019-09-03] MEDS ORDERED: MAGNESIUM/ALUMINUM HYDROXIDE/SIMETHICONE 30ML UDC PO PRN (09:15)
[2019-09-03] MEDS ORDERED: LORAZEPAM 2MG/ML CPJ IV PRN (09:15)
[2019-09-03] MEDS ORDERED: NA PHOS,M-B/NA PHOS,DI-BA ENEMA 118ML PR PRN (09:15)
[2019-09-03] MEDS ORDERED: HYDROCODONE/ACETAMINOPHEN 5/325MG TABLET PO PRN (09:15)
[2019-09-03] MEDS ORDERED: CLONIDINE 0.1MG TABLET PO PRN (09:15)
[2019-09-03 09:53] LABS: CHLORIDE 108 mEq/L (98-107)
[2019-09-03] MEDS ORDERED: LEVOFLOXACIN 500MG PREMIX 100 ML IV SCH (10:00)
[2019-09-03] MEDS: SODIUM CHLORIDE 0.45% 1,000 ML IV SCH (10:59)
[2019-09-03] MEDS: ENOXAPARIN 40MG/0.4ML SYR SUBCUT SCH (11:00)
[2019-09-03] MEDS: ASPIRIN 81MG EC TABLET PO SCH (11:00)
[2019-09-03 16:30] VITALS: BP 104/63
[2019-09-03] MEDS ORDERED: LEVE10006 PO (17:20)
[2019-09-03] MEDS ORDERED: LAM25 MT (17:21)
[2019-09-03 20:00] VITALS: BP 113/78
[2019-09-04] VITALS: BP 82/47
[2019-09-04 04:00] VITALS: BP 111/64
[2019-09-04 08:00] VITALS: BP 162/63
[2019-09-04] MEDS: ASPIRIN 81MG EC TABLET PO SCH (09:24)
[2019-09-04] MEDS: ENOXAPARIN 40MG/0.4ML SYR SUBCUT SCH (09:24)
[2019-09-04] MEDS: LEVETIRACETAM 500MG TABLET PO SCH ×2 (09:25→20:28)
[2019-09-04] MEDS: LEVOFLOXACIN 500MG PREMIX 100 ML IV SCH (09:25)
[2019-09-04 09:32] LABS: BASOPHILS % 0.7 % (0.0-2.0); EOSINOPHILS % 2.6 % (0.0-5.0); HEMATOCRIT. 43.8 % (42.0-52.0); HEMOGLOBIN. 14.4 g/dL (14.0-18.0); LYMPHOCYTES % 29.4 % (20.0-50.0); MEAN CORPUSCULAR VOLUME 91.1 fL (80.0-94.0); MEAN PLATELET VOLUME 8.4 fl (7.4-10.4); MONOCYTES % 5.5 % (2.0-8.0); NEUTROPHILS % 61.8 % (40.0-76.0); PLATELET 159 x1000/uL (130-400); RED BLOOD CELL COUNT 4.81 mill/uL (4.7-6.1); RED CELL DISTRIBUTION WIDTH 14.4 % (11.6-14.6)
[2019-09-04 09:48] LABS: CHLORIDE 111 mEq/L (98-107)
[2019-09-04 09:56] LABS: LDL CHOLESTEROL 49 mg/dL (5-100)
[2019-09-04 09:57] LABS: HDL CHOLESTEROL 68 mg/dL (40-59)
[2019-09-04 09:58] LABS: T4 FREE 1.28 ng/dL (0.76-1.46)
[2019-09-04 10:40] LABS: VITAMIN B12 SERUM > 2000.0 pg/mL (211-911)
[2019-09-04 12:00] VITALS: BP 106/69
[2019-09-04] MEDS: SODIUM CHLORIDE 0.45% 1,000 ML IV SCH (12:52)
[2019-09-04 16:00] VITALS: BP 91/59
[2019-09-04 20:00] VITALS: BP 107/65
[2019-09-05] VITALS: BP 101/67
[2019-09-05 07:42] LABS: BASOPHILS % 0.7 % (0.0-2.0); CHLORIDE 110 mEq/L (98-107); EOSINOPHILS % 3.5 % (0.0-5.0); HEMATOCRIT. 42.7 % (42.0-52.0); HEMOGLOBIN. 14.5 g/dL (14.0-18.0); LYMPHOCYTES % 33.5 % (20.0-50.0); MEAN CORPUSCULAR HEMOGLOBIN 30.5 pg (28.0-32.0); MEAN CORPUSCULAR VOLUME 90.3 fL (80.0-94.0); MEAN PLATELET VOLUME 8.5 fl (7.4-10.4); MONOCYTES % 11.6 % (2.0-8.0); NEUTROPHILS % 50.7 % (40.0-76.0); PLATELET 140 x1000/uL (130-400); RED BLOOD CELL COUNT 4.73 mill/uL (4.7-6.1); RED CELL DISTRIBUTION WIDTH 14.4 % (11.6-14.6)
[2019-09-05 08:00] VITALS: BP_SYST 104; BP_SYST 116; BP_DIAS 77; BP_DIAS 78
[2019-09-05] MEDS: LEVOFLOXACIN 500MG PREMIX 100 ML IV SCH (09:15)
[2019-09-05] MEDS: ENOXAPARIN 40MG/0.4ML SYR SUBCUT SCH (09:15)
[2019-09-05] MEDS: LEVETIRACETAM 500MG TABLET PO SCH (09:16)
[2019-09-05] MEDS: ASPIRIN 81MG EC TABLET PO SCH (09:17)
[2019-09-05 11:59] VITALS: BP 121/82
[2019-09-05 13:14] VITALS: BP 121/82
== END 2019-09-05 15:30 | disposition home health service (06) | DRG 101 ==
LOC: ER 20:32 → 8WST 09-03 04:23 → ENRESERV 09-03 14:52 → CANRESERV 09-03 15:14 → ENRESERV 09-03 15:14
PROVIDERS: ADMIT Internal Medicine; ATTEND Internal Medicine
PROC: 4A00X4Z Measurement of Central Nervous Electrical Activity, External Approach (ICD-10-PCS; principal; 2019-09-05)
DX: R56.9 Unspecified convulsions (principal); E87.2 Acidosis; J84.9 Interstitial pulmonary disease, unspecified; R29.818 Other symptoms and signs involving the nervous system; D63.8 Anemia in other chronic diseases classified elsewhere; I10 Essential (primary) hypertension; I69.30 Unspecified sequelae of cerebral infarction; Z87.828 Personal history of other (healed) physical injury and trauma; Z88.0 Allergy status to penicillin; Z88.8 Allergy status to other drugs, medicaments and biological substances; Z82.49 Family history of ischemic heart disease and other diseases of the circulatory system; Z83.3 Family history of diabetes mellitus; F10.10 Alcohol abuse, uncomplicated; Z79.899 Other long term (current) drug therapy; Z79.1 Long term (current) use of non-steroidal anti-inflammatories (NSAID)
CPT/HCPCS: 36415; 71045; 80048; 80053; 80061; 80305; 80320; 81003; 82140; 82542; 82607; 83605; 84439; 84443; 84484; 85025; 93005; 96365; 97162; 99285; J1650; J1956; J2060; J3490; J7030; G0480

== ENCOUNTER 2020-01-12 08:30 | Emergency (ER) | payer OTHER ==
[~2020-01-12] VITALS: Ht 172.7 cm; Wt 68.0 kg
[~2020-01-12 08:30] MED LIST changes: -FOLI-68 PO; -KEPP500 PO; +LAM25 MT
[2020-01-12 08:34] VITALS: BP 120/81
[2020-01-12] MEDS ORDERED: ACETAMINOPHEN 325MG TABLET PO ONE (09:30)
== END 2020-01-12 09:47 | disposition home or self-care (01) ==
LOC: ER 09:23
DX: B37.0 Candidal stomatitis (principal); R56.9 Unspecified convulsions; I10 Essential (primary) hypertension; Z79.899 Other long term (current) drug therapy; Z88.0 Allergy status to penicillin; Z88.1 Allergy status to other antibiotic agents
CPT/HCPCS: 99282; 99283

== ENCOUNTER 2020-01-14 16:08 | Inpatient (IN) | payer OTHER ==
[~2020-01-14] VITALS: Ht 170.2 cm; Wt 65.3 kg
[2020-01-14] MEDS ORDERED: SODIUM CHLORIDE 0.9% 1,000 ML IV ONE (16:30)
[2020-01-14 18:07] LABS: BASOPHILS % 0.5 % (0.0-2.0); EOSINOPHILS % 0.5 % (0.0-5.0); HEMATOCRIT. 36.5 % (42.0-52.0); HEMOGLOBIN. 12.4 g/dL (14.0-18.0); LYMPHOCYTES % 27.8 % (20.0-50.0); MEAN CORPUSCULAR HEMOGLOBIN 30.5 pg (28.0-32.0); MEAN CORPUSCULAR VOLUME 89.8 fL (80.0-94.0); MEAN PLATELET VOLUME 6.8 fl (7.4-10.4); MONOCYTES % 5.1 % (2.0-8.0); NEUTROPHILS % 66.1 % (40.0-76.0); PLATELET 160 x1000/uL (130-400); RED BLOOD CELL COUNT 4.07 mill/uL (4.7-6.1); RED CELL DISTRIBUTION WIDTH 15.5 % (11.6-14.6)
[2020-01-14 18:14] LABS: CHLORIDE 102 mEq/L (98-107)
[2020-01-14] MEDS ORDERED: ASPIRIN 325MG TABLET PO ONE (18:15)
[2020-01-14 18:17] LABS: INR 1.1; PROTHROMBIN TIME 11.8 sec (9.6-11.0)
[2020-01-14 18:20] LABS: ETHANOL BLOOD < 10 mg/dL
[2020-01-14] MEDS ORDERED: LORAZEPAM 1MG TABLET PO ONE (18:45)
[2020-01-14 18:46] LABS: CLARITY URINE CLOUDY (CLEAR); COLOR URINE YELLOW (YELLOW); KETONES URINE NEGATIVE (NEGATIVE); LEUKOCYTE ESTERASE URINE TRACE (NEGATIVE); NITRITE URINE NEGATIVE (NEGATIVE); OCCULT BLOOD URINE 1+ (NEGATIVE); PH URINE >=9.0 (4.5-8.0); PROTEIN URINE 3+ (NEGATIVE); SPECIFIC GRAVITY URINE 1.017 (1.005-1.030)
[2020-01-14] MEDS ORDERED: LORAZEPAM 2MG/ML CPJ IV ONE (19:00)
[2020-01-14 19:04] LABS: *AMPHETAMINES SCREEN URINE NEGATIVE (NEGATIVE); *BARBITURATES SCREEN URINE NEGATIVE (NEGATIVE); *BENZODIAZEPINES SCREEN URINE NEGATIVE (NEGATIVE); CANNABINOID URINE SCREEN NEGATIVE (NEGATIVE); METHADONE URINE SCREEN NEGATIVE (NEGATIVE); OPIATES URINE SCREEN NEGATIVE (NEGATIVE); PHENCYCLIDINE URINE SCREEN NEGATIVE (NEGATIVE)
[2020-01-14 19:05] LABS: *COCAINE SCREEN URINE NEGATIVE (NEGATIVE)
[2020-01-14] MEDS ORDERED: POTASSIUM CHLORIDE 20MEQ TABLET SR PO ONE (19:45)
[2020-01-14] MEDS ORDERED: ZOLPIDEM TARTRATE 5MG TABLET PO PRN (20:15)
[2020-01-14] MEDS ORDERED: MAGNESIUM/ALUMINUM HYDROXIDE/SIMETHICONE 30ML UDC PO PRN (20:15)
[2020-01-14] MEDS ORDERED: ONDANSETRON HCL 4MG/2ML INJ IV PRN (20:15)
[2020-01-14] MEDS ORDERED: ACETAMINOPHEN 325MG TABLET PO PRN ×2 (20:15)
[2020-01-14] MEDS ORDERED: CLONIDINE 0.1MG TABLET PO PRN (20:15)
[2020-01-14] MEDS: HALOPERIDOL LACTATE 5MG/ML VIAL IM PRN (20:45)
[2020-01-14] MEDS: QUETIAPINE FUMARATE 25MG TABLET PO SCH (21:00)
[2020-01-14] MEDS: LEVETIRACETAM 750 MG in SODIUM CHLORIDE 0.9% 100 ML IV SCH (21:52)
[2020-01-14] MEDS ORDERED: MVI, ADULT NO.1 10 ML, FOLIC ACID 1 MG, THIAMINE HCL 100 MG in SODIUM CHLORIDE 0.9% 1,0... IV NR ×4 (22:00)
[2020-01-14] MEDS: SODIUM CHLORIDE 0.9% INJ 3ML FLUSH IVF SCH (22:00)
[2020-01-14 22:25] VITALS: BP 139/83
[2020-01-14 23:00] VITALS: BP 139/83
[2020-01-15] VITALS: BP 128/80
[2020-01-15 04:00] VITALS: BP 134/90
[2020-01-15] MEDS: SODIUM CHLORIDE 0.9% INJ 3ML FLUSH IVF SCH ×3 (06:17→21:12)
[2020-01-15 08:00] VITALS: BP 139/76
[2020-01-15] MEDS: THIAMINE HCL 100MG TABLET PO SCH (09:36)
[2020-01-15] MEDS: LEVETIRACETAM 750 MG in SODIUM CHLORIDE 0.9% 100 ML IV SCH (10:36)
[2020-01-15 12:00] VITALS: BP 125/86
[2020-01-15 16:00] VITALS: BP 127/71
[2020-01-15] MEDS: LORAZEPAM 2MG/ML CPJ IV PRN (17:23)
[2020-01-15] MEDS: LAMOTRIGINE 25MG TABLET PO SCH (17:24)
[2020-01-15 20:00] VITALS: BP 129/79
[2020-01-15] MEDS: LEVETIRACETAM 500MG TABLET PO SCH (21:11)
[2020-01-15] MEDS: QUETIAPINE FUMARATE 25MG TABLET PO SCH (21:12)
[2020-01-15] MEDS: HALOPERIDOL LACTATE 5MG/ML VIAL IM PRN (21:20)
[2020-01-16] VITALS: BP 110/68
[2020-01-16 04:00] VITALS: BP 104/104
[2020-01-16 06:57] LABS: BASOPHILS % 0.4 % (0.0-2.0); CHLORIDE 108 mEq/L (98-107); EOSINOPHILS % 3.4 % (0.0-5.0); HEMATOCRIT. 37.3 % (42.0-52.0); HEMOGLOBIN. 12.6 g/dL (14.0-18.0); LYMPHOCYTES % 28.1 % (20.0-50.0); MEAN CORPUSCULAR HEMOGLOBIN 30.5 pg (28.0-32.0); MEAN PLATELET VOLUME 7.2 fl (7.4-10.4); MONOCYTES % 9.2 % (2.0-8.0); NEUTROPHILS % 58.9 % (40.0-76.0); PLATELET 132 x1000/uL (130-400); RED BLOOD CELL COUNT 4.14 mill/uL (4.7-6.1); RED CELL DISTRIBUTION WIDTH 15.4 % (11.6-14.6)
[2020-01-16 07:11] LABS: PHOSPHORUS 1.8 mg/dL (2.5-4.9)
[2020-01-16 08:00] VITALS: BP 112/79
[2020-01-16] MEDS: THIAMINE HCL 100MG TABLET PO SCH (09:22)
[2020-01-16] MEDS: LAMOTRIGINE 25MG TABLET PO SCH ×2 (09:22→18:18)
[2020-01-16] MEDS: LEVETIRACETAM 500MG TABLET PO SCH ×2 (09:22→20:02)
[2020-01-16 12:00] VITALS: BP 150/89
[2020-01-16] MEDS: HALOPERIDOL LACTATE 5MG/ML VIAL IM PRN (14:40)
[2020-01-16 16:00] VITALS: BP 138/79
[2020-01-16] MEDS: LORAZEPAM 2MG/ML CPJ IV PRN (18:18)
[2020-01-16 20:00] VITALS: BP 101/64
[2020-01-16] MEDS: QUETIAPINE FUMARATE 25MG TABLET PO SCH (20:02)
[2020-01-16] MEDS: SODIUM CHLORIDE 0.9% INJ 3ML FLUSH IVF SCH (23:22)
[2020-01-17] VITALS: BP 114/77
[2020-01-17 04:00] VITALS: BP 107/69
[2020-01-17] MEDS: SODIUM CHLORIDE 0.9% INJ 3ML FLUSH IVF SCH (06:35)
[2020-01-17 08:00] VITALS: BP 117/63
[2020-01-17] MEDS: LEVETIRACETAM 500MG TABLET PO SCH (09:28)
[2020-01-17] MEDS: THIAMINE HCL 100MG TABLET PO SCH (09:28)
[2020-01-17] MEDS: LAMOTRIGINE 25MG TABLET PO SCH (09:28)
[2020-01-17 12:00] VITALS: BP 117/62
[2020-01-17 16:00] VITALS: BP 107/67
== END 2020-01-17 17:40 | disposition home health service (06) | DRG 93 ==
LOC: ER 16:08 → 5WST 19:43 → EDBEDREQTM 19:53 → EDBEDREQ 19:53 → ENRESERV 21:29
PROVIDERS: ADMIT Internal Medicine; ATTEND Internal Medicine
DX: G92 Toxic encephalopathy (principal); E87.6 Hypokalemia; R74.01 Elevation of levels of liver transaminase levels; G40.909 Epilepsy, unspecified, not intractable, without status epilepticus; I10 Essential (primary) hypertension; R29.6 Repeated falls; Z82.49 Family history of ischemic heart disease and other diseases of the circulatory system; Z87.891 Personal history of nicotine dependence; Z79.899 Other long term (current) drug therapy; Z88.0 Allergy status to penicillin; Z88.1 Allergy status to other antibiotic agents; Z87.820 Personal history of traumatic brain injury; Z78.1 Physical restraint status
CPT/HCPCS: 36415; 71045; 80053; 80305; 80320; 81003; 83735; 84100; 84443; 84484; 85025; 93005; 93970; 96374; 97116; 97162; 97530; 99285; J1630; J1953; J2060; J3411; J3490; J7030; J7050; G0480

== ENCOUNTER 2020-05-08 10:42 | Inpatient (IN) | payer OTHER ==
[~2020-05-08] VITALS: Ht 172.7 cm; Wt 53.5 kg
[~2020-05-08 10:42] MED LIST changes: -LEVE1000 MT; -RISP0.5T19 MT; +RISP0.5T65 MT
[2020-05-08] MEDS ORDERED: SODIUM CHLORIDE 0.9% 500 ML IV ONE ×2 (12:30→13:45)
[2020-05-08 12:35] LABS: BASOPHILS % 0.7 % (0.0-2.0); EOSINOPHILS % 5.3 % (0.0-5.0); HEMATOCRIT. 37.9 % (42.0-52.0); HEMOGLOBIN. 12.5 g/dL (14.0-18.0); LYMPHOCYTES % 10.9 % (20.0-50.0); MEAN CORPUSCULAR HEMOGLOBIN 28.8 pg (28.0-32.0); NEUTROPHILS % 76.1 % (40.0-76.0); RED BLOOD CELL COUNT 4.36 mill/uL (4.7-6.1); RED CELL DISTRIBUTION WIDTH 15.1 % (11.6-14.6)
[2020-05-08 12:46] LABS: CHLORIDE 110 mEq/L (98-107)
[2020-05-08 12:49] LABS: INR 1.3; PROTHROMBIN TIME 13.5 sec (9.6-11.0)
[2020-05-08 13:09] LABS: PLATELET 209 x1000/uL (130-400)
[2020-05-08] MEDS ORDERED: AZITHROMYCIN 500 MG in DEXT 5% WATER 250 ML IV SCH (13:45)
[2020-05-08] MEDS ORDERED: AZITHROMYCIN 500MG in DEXTROSE 5% WATER 250ML IV SCH (14:00)
[2020-05-08] MEDS ORDERED: ALBUTEROL 6.7GM HFA INHALER ORI PRN (16:30)
[2020-05-08] MEDS ORDERED: ONDANSETRON HCL 4MG/2ML INJ IV PRN (16:30)
[2020-05-08] MEDS ORDERED: ACETAMINOPHEN 325MG TABLET PO PRN (16:30)
[2020-05-08 16:59] LABS: CLARITY URINE CLEAR (CLEAR); COLOR URINE YELLOW (YELLOW); KETONES URINE 4+ (NEGATIVE); LEUKOCYTE ESTERASE URINE TRACE (NEGATIVE); NITRITE URINE NEGATIVE (NEGATIVE); OCCULT BLOOD URINE NEGATIVE (NEGATIVE); PROTEIN URINE NEGATIVE (NEGATIVE); SPECIFIC GRAVITY URINE 1.014 (1.005-1.030); UROBILINOGEN URINE 0.2 E.U./dL (0.2-1.0)
[2020-05-08] MEDS ORDERED: CEFTRIAXONE 1 G PREMIX 50 ML IV SCH (17:00)
[2020-05-08 18:00] VITALS: BP 102/70
[2020-05-08] MEDS ORDERED: LEVE750T66 MT (19:30)
[2020-05-08 20:00] VITALS: BP 120/70
[2020-05-08] MEDS: ATORVASTATIN CALCIUM 40MG TABLET PO SCH (20:27)
[2020-05-08] MEDS: RISPERIDONE 0.5MG TABLET PO SCH (20:28)
[2020-05-08] MEDS: LEVETIRACETAM 250MG TABLET PO SCH (20:47)
[2020-05-08] MEDS: QUETIAPINE FUMARATE 25MG TABLET PO PRN (21:51)
[2020-05-08] MEDS ORDERED: *PATIENT'S OWN MEDICATION STORAGE XX SCH (22:30)
[2020-05-08] MEDS: CEFTRIAXONE 1,000 MG in DEXTROSE 5% WATER 50 ML IV SCH (22:42)
[2020-05-09] VITALS: BP 106/65
[2020-05-09 04:00] VITALS: BP 102/48
[2020-05-09 08:00] VITALS: BP 92/53
[2020-05-09] MEDS: LAMOTRIGINE 25MG TABLET PO SCH ×2 (09:45→17:15)
[2020-05-09] MEDS: LEVETIRACETAM 250MG TABLET PO SCH ×2 (09:45→20:32)
[2020-05-09] MEDS: AZITHROMYCIN 250 MG TABLET PO SCH (09:45)
[2020-05-09] MEDS: NICOTINE 14MG PATCH TD SCH (11:23)
[2020-05-09 12:00] VITALS: BP 108/71
[2020-05-09 16:32] VITALS: BP 129/81
[2020-05-09] MEDS: ENOXAPARIN 40MG/0.4ML SYR SUBCUT SCH (18:51)
[2020-05-09 20:00] VITALS: BP 92/42
[2020-05-09] MEDS: ATORVASTATIN CALCIUM 40MG TABLET PO SCH (20:32)
[2020-05-09] MEDS: RISPERIDONE 0.5MG TABLET PO SCH (20:32)
[2020-05-09] MEDS: QUETIAPINE FUMARATE 25MG TABLET PO PRN (20:32)
[2020-05-09] MEDS: CEFTRIAXONE 1,000 MG in DEXTROSE 5% WATER 50 ML IV SCH (21:09)
[2020-05-10] VITALS (7 sets, daily range): BP systolic 93–117; BP diastolic 50–76
[2020-05-10] MEDS: AZITHROMYCIN 250 MG TABLET PO SCH (08:15)
[2020-05-10] MEDS: THIAMINE HCL 100MG TABLET PO SCH (08:15)
[2020-05-10] MEDS: LEVETIRACETAM 250MG TABLET PO SCH ×2 (08:15→21:19)
[2020-05-10] MEDS: NICOTINE 14MG PATCH TD SCH (08:15)
[2020-05-10] MEDS: FOLIC ACID 1MG TABLET PO SCH (08:15)
[2020-05-10] MEDS: LAMOTRIGINE 25MG TABLET PO SCH ×2 (08:15→17:12)
[2020-05-10] MEDS: ENOXAPARIN 40MG/0.4ML SYR SUBCUT SCH (17:13)
[2020-05-10] MEDS: RISPERIDONE 0.5MG TABLET PO SCH (21:20)
[2020-05-10] MEDS: ATORVASTATIN CALCIUM 40MG TABLET PO SCH (21:20)
[2020-05-10] MEDS: CEFTRIAXONE 1,000 MG in DEXTROSE 5% WATER 50 ML IV SCH (21:20)
[2020-05-11 04:00] VITALS: BP 90/44
[2020-05-11] MEDS ORDERED: DEXAMETHASONE 4MG TABLET PO SCH (09:00)
[2020-05-11] MEDS: FOLIC ACID 1MG TABLET PO SCH (09:13)
[2020-05-11] MEDS: NICOTINE 14MG PATCH TD SCH (09:13)
[2020-05-11] MEDS: AZITHROMYCIN 250 MG TABLET PO SCH (09:13)
[2020-05-11] MEDS: LAMOTRIGINE 25MG TABLET PO SCH ×2 (09:13→17:50)
[2020-05-11] MEDS: THIAMINE HCL 100MG TABLET PO SCH (09:13)
[2020-05-11] MEDS: LEVETIRACETAM 250MG TABLET PO SCH (09:24)
[2020-05-11] MEDS: LORAZEPAM 1MG TABLET PO PRN ×2 (09:35→18:52)
[2020-05-11 12:00] VITALS: BP 93/70
[2020-05-11 16:00] VITALS: BP 99/60
[2020-05-11] MEDS: ENOXAPARIN 40MG/0.4ML SYR SUBCUT SCH (17:50)
[2020-05-11 19:11] VITALS: BP 100/59
[2020-05-11 20:00] VITALS: BP 113/68
== END 2020-05-11 21:30 | DRG 177 ==
LOC: ER 11:09 → 7WST 14:35 → ENRESERV 15:28
PROVIDERS: ADMIT Internal Medicine; ATTEND Internal Medicine
PROC: 05HY33Z Insertion of Infusion Device into Upper Vein, Percutaneous Approach (ICD-10-PCS; principal; 2020-05-09)
DX: U07.1 COVID-19 (principal); E43 Unspecified severe protein-calorie malnutrition; J12.82 Pneumonia due to coronavirus disease 2019; Z68.1 Body mass index [BMI] 19.9 or less, adult; G93.89 Other specified disorders of brain; G40.909 Epilepsy, unspecified, not intractable, without status epilepticus; D64.9 Anemia, unspecified; E87.8 Other disorders of electrolyte and fluid balance, not elsewhere classified; F03.90 Unspecified dementia, unspecified severity, without behavioral disturbance, psychotic disturbance, mood disturbance, and anxiety; F17.210 Nicotine dependence, cigarettes, uncomplicated; R74.01 Elevation of levels of liver transaminase levels; Z82.49 Family history of ischemic heart disease and other diseases of the circulatory system; Z88.1 Allergy status to other antibiotic agents; Z88.0 Allergy status to penicillin
CPT/HCPCS: 36415; 71045; 76937; 80053; 81003; 83605; 84145; 84484; 85025; 86850; 86900; 93005; 99285; C1725; J0456; J0696; J1650; J7040; J7060; J8540; U0003